=== PATIENT | female | born 1995 | race Two or more races ===

== ENCOUNTER 2019-04-29 12:15 | Emergency (ER) | payer SELFPAY ==
[~2019-04-29] VITALS: Ht 154.9 cm; Wt 93.0 kg
[2019-04-29 12:27] VITALS: BP 129/84
== END 2019-04-29 13:02 | disposition home or self-care (01) ==
LOC: ER 12:15
DX: Z32.01 Encounter for pregnancy test, result positive (principal)
CPT/HCPCS: 81002; 81025